=== PATIENT | female | born 1980 | race American Indian/Alaskan Native ===

== ENCOUNTER 2019-10-11 16:36 | Emergency (ER) | payer OTHER ==
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
--- NOTE | 2019-10-11 19:27 | XRay Report ---
Left shoulder 3 views INDICATION: Left shoulder pain. Recent injury. IMPRESSION: No fracture or subluxation is identified. Signer Name: Jasen Evans MD Signed: 10/11/2019 7:23 PM Workstation Name: [id number]
--- NOTE | 2019-10-11 19:28 | XRay Report ---
Left foot 3 views INDICATION: Left foot pain. IMPRESSION: No fracture or subluxation of the left foot is identified. Signer Name: Jasen Evans MD Signed: 10/11/2019 7:24 PM Workstation Name: [id number]
--- NOTE | 2019-10-11 19:28 | XRay Report ---
Left ankle 3 views INDICATION: Left ankle pain following injury IMPRESSION: No fracture or subluxation of the left ankle. Signer Name: Jasen Evans MD Signed: 10/11/2019 7:23 PM Workstation Name: [id number]
[2019-10-11 19:55] VITALS: BP 115/60
== END 2019-10-11 20:23 | disposition home or self-care (01) ==
LOC: ED 16:36
DX: S46.912A Strain of unspecified muscle, fascia and tendon at shoulder and upper arm level, left arm, initial encounter (principal); M79.672 Pain in left foot; M25.572 Pain in left ankle and joints of left foot; V49.49XA Driver injured in collision with other motor vehicles in traffic accident, initial encounter; Y93.89 Activity, other specified; Y92.488 Other paved roadways as the place of occurrence of the external cause; Y99.8 Other external cause status
CPT/HCPCS: 99283